=== PATIENT | female | born 1935 | race Caucasian/White ===

== ENCOUNTER 2024-11-08 18:40 | Observation (INO) | payer OTHER, SELFPAY ==
[2024-11-08 18:48] VITALS: BP 190/100; PULSE 89; RESP 18; TEMP 36.7; O2SAT 99; BMI 23.0
--- NOTE | 2024-11-08 18:50 | ED_ITS ---
HPI - Extremity Injury (Lower) General Chief Complaint: Fall Stated Complaint: fell off a ladder injured R knee Time Seen by Provider: 11/08/24 18:46 History of Present Illness HPI Narrative: Patient is an 89-year-old female who takes no medication presents today with right knee pain after fall off ladder. She states that she was coming down off a ladder she was 3 rings up when she felt right side. She may have hit her head but did not lose consciousness no evidence of trauma no neck pain no shoulder pain. Unable to bear weight. She got 500 of naproxen prior to arrival. Related Data Allergies Allergy/AdvReac Type Severity Reaction Status Date / Time No Known Drug Allergies Allergy Verified 11/08/24 18:47 Patient History Social History Smoking Status: Never smoker Smoking Status: Never smoker Alcohol type: wine Exam Initial Vital Signs Initial Vital Signs: Vital Signs Temperature 98.1 F 11/08/24 18:48 Pulse Rate 89 11/08/24 18:48 Respiratory Rate 18 11/08/24 18:48 Blood Pressure 190/100 H 11/08/24 18:48 Pulse Oximetry 99 11/08/24 18:48 Oxygen Delivery Method Room Air 11/08/24 18:48 GENERAL: Alert well-appearing 81-year-old female appears younger than stated age and in [no acute] distress. HEENT: Head atraumatic,EOMI, pupils reactive, face symmetric, [moist] mucous membranes CARDIOVASCULAR: Regular rate and rhythm without murmurs, rubs or gallops. RESPIRATORY: Breath sounds equal bilaterally, no wheezes rales or rhonchi. No rib pain ABDOMEN: Soft, nontender. Normoactive bowel sounds all 4 quadrants. No guarding or rebound. EXTREMITIES: Normal range of motion, no clubbing or edema. Neurovascularly intact pelvis stable Right lower extremity knee swollen and tender ankle is stable distal pedal pulse intact NEUROLOGICAL: Alert and oriented x4. Cranial nerves intact SKIN: Warm, dry, no laceration, no petechiae, no rashes or lesions. Course Orders Ordered: ED Orders 11/08/24 18:50 XR knee RT 3V Stat 11/08/24 19:47 CT LE RT wo con Stat 11/08/24 22:12 Consult to Orthopedic Surgery Stat 11/08/24 22:23 BMP [Basic Metabolic Panel] Stat CBC Auto Diff [Complete Blood Count AUTO DIFF] Stat Acetaminophen (Acetaminophen 325 Mg Tablet) 650 mg PO Q6H PRN PRN Reason: Fever/Mild Pain (1-3) Hydrocodone Bitart/Acetaminophen (Hydrocodone/Acet 5/325 Tablet) 1 tab PO Q4H PRN PRN Reason: Pain, Moderate (4-6) Heparin Sodium (Porcine) (Heparin 5,000 Unit/Ml Vial) 5,000 unit SUBCUT BID CAM Hydromorphone HCl (Hydromorphone 0.5 Mg Inj) 0.5 mg IV Q2H PRN PRN Reason: Pain, Severe (7-10) Naloxone HCl (Naloxone 0.4 Mg/Ml Vial) 0.2 mg IV Q2MIN PRN PRN Reason: Opiate Reversal Ondansetron HCl (Ondansetron 4 Mg/2 Ml Inj) 4 mg IV Q8HR PRN PRN Reason: Nausea And Vomiting Discontinued Medications Oxycodone/Acetaminophen (Oxycodone/Acetaminophen 5/325 Tablet) 0.5 tab PO NOW ONE Stop: 11/08/24 21:56 Last Admin: 11/08/24 22:07 Dose: 0.5 tab Documented By: DAVID Vital Signs Vital signs: Vital Signs - 8 hr 11/08/24 18:48 11/08/24 19:40 11/08/24 19:40 Temperature 98.1 F Pulse Rate 89 75 Respiratory Rate 18 Blood Pressure 190/100 H 186/93 H Pulse Oximetry 99 91 Oxygen Delivery Method Room Air 11/08/24 20:05 11/08/24 22:04 11/08/24 22:04 Temperature Pulse Rate 80 89 Respiratory Rate 18 16 Blood Pressure 174/101 H Pulse Oximetry 97 97 Oxygen Delivery Method Room Air MDM - Extremity Injury (Lower) Lab Data 11/08/24 22:23 11/08/24 22:23 Imaging Data Extremity x-ray #1: Radiologist's Impression: PROCEDURE: XR KNEE RT 3V INDICATIONS: fall TECHNIQUE: 3 views of the knee were acquired. COMPARISON: None. FINDINGS: Bones: Mildly impacted fracture of the proximal tibia diaphysis. There is some irregularity at the proximal lateral tibial plateau which may reflect intra-articular extension. Comminuted fracture of the fibula head with suspected intra-articular extension. Soft tissues: Large joint effusion. No suspicious soft tissue calcifications. Vascular calcifications are present. IMPRESSION: Proximal tibia diaphyseal fracture with suspected intra-articular extension. Comminuted fibular head fracture with suspected intra-articular extension. Large suprapatellar joint effusion. Approved by: Judith Malone M.D.,Ph.D. on 11/08/2024 at 19:43 CT LE: Radiologist's Impression: PROCEDURE: CT LE RT WO CON INDICATIONS: tibia fracture TECHNIQUE: Noncontrast 1-1.5 mm axial sections acquired from the mid-patella to the proximal tibia, with coronal and sagittal reformats. For radiation dose reduction, the following was used: automated exposure control, adjustment of mA and/or kV according to patient size. COMPARISON: [facility], CR, XR KNEE RT 3V, 11/08/2024, 18:58. FINDINGS: Image quality: Excellent. Bones: Comminuted mildly displaced fracture of the tibial plateau is again seen. Components are seen extending into the medial and lateral tibial plateau as well as the central eminence, with a transverse component seen at the tibial metaphysis (Schatzker type 6). There is approximately 2 mm gap along the fracture line at the medial tibial plateau without significant step-off. Up to 4 mm articular surface depression is seen at the posterior weight-bearing portion of the lateral tibial plateau. Displaced intra-articular fracture is seen involving the fibular head extending into the proximal tibiofibular articulation with up to 4 mm step-off at the articular surface. The posterior fracture fragment displaced posteriorly by approximately 12 mm. No femoral or patellar fracture is seen. Background osteoarthrosis. Soft tissues: Large lipohemarthrosis. Probable intramuscular hematoma within the soleus muscle, not well evaluated due attenuation similar to muscle. IMPRESSION: 1. Comminuted mildly depressed fracture of the tibial plateau with transverse component at the tibial metaphysis as described in the body report. 2. Comminuted displaced intra-articular fracture of the fibular head. 3. Large lipohemarthrosis. 4. Suspected intramuscular hematoma in the soleus muscle. Approved by: Saman Garcia M.D. on 11/08/2024 at 20:54 MDM Narrative Medical decision making narrative: Patient is a healthy 81-year-old female presenting today with right knee pain after fall off ladder from 3 race. She is not in actually severe pain. X-ray showed tibial fracture with intra articular extension. CT confirms tibial plateau fracture with a 4 mm depression along with comminuted displaced fracture of fibular head. 2100 Dr. Mckenna, updated on patient's symptoms test results has reviewed CT. Decision of nonoperative versus transfer. At this time recommends nonoperative treatment. Also recommends admission we will need help with mobility issues. Request admit to hospitalist service Dr. Zhang accepts patient Blood work reviewedmal limits no significant abnormality Patient did receive have a Percocet to apply a knee immobilizer. Discharge Plan Departure Patient Disposition: Admitted as Observation Clinical Impression: Fracture of right tibial plateau, Osteopenia Admit Date/Time: 11/08/24 22:14 Admit Provider: Adiel Crenshaw
[2024-11-08 19:40] VITALS: BP 186/93; PULSE 75; O2SAT 91
--- NOTE | 2024-11-08 19:47 | DI.CT.S_ITS ---
PROCEDURE: CT LE RT WO CON INDICATIONS: tibia fracture TECHNIQUE: Noncontrast 1-1.5 mm axial sections acquired from the mid-patella to the proximal tibia, with coronal and sagittal reformats. For radiation dose reduction, the following was used: automated exposure control, adjustment of mA and/or kV according to patient size. COMPARISON: [facility], CR, XR KNEE RT 3V, 11/08/2024, 18:58. FINDINGS: Image quality: Excellent. Bones: Comminuted mildly displaced fracture of the tibial plateau is again seen. Components are seen extending into the medial and lateral tibial plateau as well as the central eminence, with a transverse component seen at the tibial metaphysis (Schatzker type 6). There is approximately 2 mm gap along the fracture line at the medial tibial plateau without significant step-off. Up to 4 mm articular surface depression is seen at the posterior weight-bearing portion of the lateral tibial plateau. Displaced intra-articular fracture is seen involving the fibular head extending into the proximal tibiofibular articulation with up to 4 mm step-off at the articular surface. The posterior fracture fragment displaced posteriorly by approximately 12 mm. No femoral or patellar fracture is seen. Background osteoarthrosis. Soft tissues: Large lipohemarthrosis. Probable intramuscular hematoma within the soleus muscle, not well evaluated due attenuation similar to muscle. IMPRESSION: 1. Comminuted mildly depressed fracture of the tibial plateau with transverse component at the tibial metaphysis as described in the body report. 2. Comminuted displaced intra-articular fracture of the fibular head. 3. Large lipohemarthrosis. 4. Suspected intramuscular hematoma in the soleus muscle. Approved by: Saman Garcia M.D. on 11/08/2024 at 20:54
[2024-11-08 20:05] VITALS: PULSE 80; RESP 18; O2SAT 97
[2024-11-08 22:04] VITALS: BP 174/101; PULSE 89; RESP 16; O2SAT 97
[2024-11-08] MEDS: OXYCODONE/ACETAMINOPHEN 5/325 TABLET 0.5 TAB PO (22:07)
[2024-11-08 22:33] LABS: Add Manual Diff / Slide Review NO; Basophils Absolute Auto 0 /uL (0-100); Basophils Percent Auto 0.4 % (0-2); Eosinophils Absolute Auto 0 /uL (0-450); Eosinophils Percent Auto 0.4 % (2-4); Hematocrit 40.2 % (36-46); Hemoglobin 13.7 g/dL (12.0-16.0); Lymphocytes Absolute Auto 1200 /uL (1100-4500); Mean Corpuscular HGB Conc 34.1 % (30-36); Mean Corpuscular Hemoglobin 32.8 PG (26-34); Mean Corpuscular Volume 96.3 fL (80-100); Monocytes Absolute Auto 500 /uL (0-900); Monocytes Percent Auto 5.2 % (3-14); Neutrophils Absolute Auto 7700 /uL (1500-7000); Platelet Count 218 X10^3/uL (150-400); Red Blood Cell Count 4.17 X10^6/uL (4.0-5.2); White Blood Cell Count 9.5 X10^3/uL (4.5-11.0)
[2024-11-08 22:48] LABS: BUN Creatinine Ratio 37.1 (6-22); Blood Urea Nitrogen 26 mg/dL (7-17); Calcium 9.1 mg/dL (8.4-10.2); Carbon Dioxide 28 mmol/L (22-32); Chloride 102 mmol/L (98-107); Estimated Glomerular Filt Rate > 60 mL/min (>60); Glucose 118 mg/dL (80-110); HEMOLYSIS 20 (0-50); Sodium 136 mmol/L (137-145)
[2024-11-08 23:20] VITALS: BMI 23.0
[2024-11-08 23:36] VITALS: BP 186/112; PULSE 82; RESP 18; TEMP 36.4; O2SAT 96
[2024-11-09] MEDS: HYDROCODONE/ACET 5/325 TABLET 1 TAB PO ×4 (01:16→14:51)
[2024-11-09 05:38] LABS: Add Manual Diff / Slide Review NO; Basophils Absolute Auto 0 /uL (0-100); Basophils Percent Auto 0.3 % (0-2); Eosinophils Absolute Auto 0 /uL (0-450); Eosinophils Percent Auto 0.4 % (2-4); Hematocrit 35.5 % (36-46); Hemoglobin 12.1 g/dL (12.0-16.0); Lymphocytes Absolute Auto 900 /uL (1100-4500); Lymphocytes Percent Auto 14.5 % (25-40); Mean Corpuscular HGB Conc 34.2 % (30-36); Mean Corpuscular Hemoglobin 32.8 PG (26-34); Monocytes Absolute Auto 400 /uL (0-900); Monocytes Percent Auto 6.5 % (3-14); Neutrophils Absolute Auto 5000 /uL (1500-7000); Neutrophils Percent Auto 78.3 % (50-75); Platelet Count 193 X10^3/uL (150-400); Red Cell Distribution Width 13.2 % (11.6-14.8); White Blood Cell Count 6.4 X10^3/uL (4.5-11.0)
[2024-11-09 06:03] LABS: BUN Creatinine Ratio 36.6 (6-22); Blood Urea Nitrogen 26 mg/dL (7-17); Carbon Dioxide 27 mmol/L (22-32); Chloride 101 mmol/L (98-107); Estimated Glomerular Filt Rate > 60 mL/min (>60); Glucose 127 mg/dL (80-110); HEMOLYSIS < 15 (0-50); Sodium 134 mmol/L (137-145)
--- NOTE | 2024-11-09 06:03 | PM.HP.1 ---
History of Present Illness History of Present Illness Chief complaint: fell off a ladder injured R knee Narrative: 89-year-old female with no reported past medical history and does not take any medication presents with a fall and right knee pain. Per the patient's report the patient was walking down off a. Labs were relatively benign. X-ray and CT of the right lower extremity shows comminuted mildly depressed fracture of the tibial plateau with transverse component at the tibial meta phthisis ladder when she was only 3 rings and fell onto her right side. The patient might have hit her head slightly but did not lose consciousness and has no other pain other than her right knee. Due to significant pain on the right knee the patient was unable to bear any weight. Otherwise the patient denies any recent fever, chills, nausea, vomiting, diarrhea, chest pain or shortness of breath. In our emergency room, the patient was hemodynamically stable. Labs were relatively benign. CT and x-ray of the right knee shows a depressed fracture of the tibial plateau. Mildly fracture of the tibial plateau. Our ER physician did speak to orthopedic doctor surgeon Jeff on-call who recommended that we admit the patient here as the patient is nonoperative. Recommended for pain control PT OT and orthopedic to see the patient in the morning. [facility] Social History household members: family Smoking Status: Never smoker Meds Home Medications and Allergies Allergies Allergy/AdvReac Type Severity Reaction Status Date / Time No Known Drug Allergies Allergy Verified 11/08/24 18:47 Review of Systems Review of Systems ROS: Yes All systems reviewed with the patient and are negative except as otherwise documented Exam Vital Signs (past 8 hours): - 11/08/24 22:04 11/08/24 22:04 11/08/24 23:36 Temperature 97.5 F L Pulse Rate 89 82 Respiratory Rate 16 18 Blood Pressure 174/101 H 186/112 H Pulse Oximetry 97 96 Oxygen Delivery Method Room Air Oxygen Flow Rate 0 Oxygen Delivery Method Room Air Oxygen Flow Rate 0 Narrative Exam Narrative: Physical Exam: GENERAL: The patient is not in any acute distressed. Awake and alert. HEENT: Nonicteric sclerae, PERRLA, EOMI. Oropharynx clear. Moist mucous membranes. Conjunctivae appear well perfused. HEART: Regular rate and rhythm without murmurs. No lower extremities edema. LUNGS: Clear to auscultation bilaterally. No wheezing, crackles or rhonchi ABDOMEN: Soft, positive bowel sounds, nontender. SKIN: No rash, no excessive bruising, petechiae, or purpura. NEUROLOGIC: AxO x 3. Limimted movement in RLE due to pain otherwise Cranial nerves II-XII intact without motor/sensory deficit. Objective Labs 11/09/24 04:50 11/08/24 22:23 Labs: Laboratory Results - last 24 hr 11/08/24 11/09/24 22:23 04:50 WBC 9.5 6.4 RBC 4.17 3.70 L Hgb 13.7 12.1 Hct 40.2 35.5 L MCV 96.3 96.0 MCH 32.8 32.8 MCHC 34.1 34.2 RDW 13.0 13.2 Plt Count 218 193 Neut % (Auto) 81.0 H 78.3 H Lymph % (Auto) 13.0 L 14.5 L [place] % (Auto) 5.2 6.5 Eos % (Auto) 0.4 L 0.4 L Baso % (Auto) 0.4 0.3 Neut # (Auto) 7700 H 5000 Lymph # (Auto) 1200 900 L [place] # (Auto) 500 400 Eos # (Auto) 0 0 Baso # (Auto) 0 0 Sodium 136 L Potassium 4.0 Chloride 102 Carbon Dioxide 28 BUN 26 H Creatinine 0.70 Estimated GFR > 60 BUN/Creatinine Ratio 37.1 H Glucose 118 H Calcium 9.1 Assessment & Plan Assessment & Plan narrative: Mechanical fall with right tibial plateau fracture. Admit the patient to medical observation. PT OT. Pain control. Per orthopedic surgeon nonoperative. Orthopedic surgery will see tomorrow patient tomorrow and likely will follow-up as outpatient. DVT prophylaxis SCDs and heparin subcu. CODE STATUS full code. Disposition likely home with home health versus rehab in 1 to 2 days. - As the provider of this telehealth evaluation, requested by the patient's evaluating physician, I attest that I introduced myself to the patient, provided my credentials and determined that telemedicine via a real-time, 2 way interactive audio and video platform is an appropriate and effective means of providing this service. - I reviewed the patient's chart and had a discussion with the member of the patient's treatment team. - The patient and I mutually agreed with continuation of this evaluation via telemedicine. The patient consented for the telemedicine evaluation. - This virtual encounter was taken place from [place]. The encounter was approximately 35 minutes. The nurse was present during the entire time of the encounter and was able to move the stethoscope in appropriate directions. The patient was evaluated at [facility]. Time-Based Coding :: [TOTAL MINUTES] spent with patient and on the chart (including review of chart, obtaining history, exam, reviewing outside data, placing orders, documenting exam and treatment plan, and counseling patient) on [DATE]. Quality VTE Deep Vein Thrombosis/Pulmonary Embolism Present on Admission: No
--- NOTE | 2024-11-09 07:21 | P.PN_ITS ---
Subjective Subjective Interval history: Summary: 89-year-old male with ground level fall and tibial plateau fracture. S: Good pain control, the patient only has pain if she was moving the knee or trying to weight bear. She was otherwise healthy and has no medical problems. Exam Vital Signs (past 8 hours): - 11/08/24 23:36 Temperature 97.5 F L Pulse Rate 82 Respiratory Rate 18 Blood Pressure 186/112 H Pulse Oximetry 96 Oxygen Flow Rate 0 Oxygen Delivery Method Room Air Oxygen Flow Rate 0 Narrative Exam Narrative: NAD, alert and oriented. Fluent speech. Lungs are clear, normal rate and effort. Heart is regular, no murmur gallop or rub. Abdomen is soft, non distended. Extremities are free of edema. A right knee immobilizer is in place. Objective Imaging Multiple studies:: My impression: My read of the x-ray does reveal a proximal fibular fracture which is intra- articular as well as a depressed lateral plateau fracture of the tibia. Radiologist's impression: Leg CT: 1. Comminuted mildly depressed fracture of the tibial plateau with transverse component at the tibial metaphysis as described in the body report. 2. Comminuted displaced intra-articular fracture of the fibular head. 3. Large lipohemarthrosis. 4. Suspected intramuscular hematoma in the soleus muscle. Knee x-ray: Proximal tibia diaphyseal fracture with suspected intra-articular extension. Comminuted fibular head fracture with suspected intra-articular extension. Large suprapatellar joint effusion. Labs 11/09/24 04:50 11/09/24 04:50 Labs: Laboratory Results - last 24 hr 11/08/24 11/09/24 22:23 04:50 WBC 9.5 6.4 RBC 4.17 3.70 L Hgb 13.7 12.1 Hct 40.2 35.5 L MCV 96.3 96.0 MCH 32.8 32.8 MCHC 34.1 34.2 RDW 13.0 13.2 Plt Count 218 193 Neut % (Auto) 81.0 H 78.3 H Lymph % (Auto) 13.0 L 14.5 L [place] % (Auto) 5.2 6.5 Eos % (Auto) 0.4 L 0.4 L Baso % (Auto) 0.4 0.3 Neut # (Auto) 7700 H 5000 Lymph # (Auto) 1200 900 L [place] # (Auto) 500 400 Eos # (Auto) 0 0 Baso # (Auto) 0 0 Sodium 136 L 134 L Potassium 4.0 4.0 Chloride 102 101 Carbon Dioxide 28 27 BUN 26 H 26 H Creatinine 0.70 0.71 Estimated GFR > 60 > 60 BUN/Creatinine Ratio 37.1 H 36.6 H Glucose 118 H 127 H Calcium 9.1 9.0 PFSH Social History household members: family Smoking Status: Never smoker Assessment & Plan Assessment & Plan narrative: 1. Tibial plateau fracture and proximal fibula fracture, present on admission and active. Plan: -knee immobilizer. -analgesia. -orthopedics consult pending, still debating operative versus nonoperative management. -nonweightbearing right lower extremity at this time. Time-Based Coding :: [TOTAL MINUTES] spent with patient and on the chart (including review of chart, obtaining history, exam, reviewing outside data, placing orders, documenting exam and treatment plan, and counseling patient) on [DATE]. Quality VTE Deep Vein Thrombosis/Pulmonary Embolism Present on Admission: No
[2024-11-09] MEDS: HEPARIN 5,000 UNIT/ML VIAL 5000 UNIT SUBCUT (09:19)
--- NOTE | 2024-11-09 11:20 | PT.IIE ---
Physical Therapy Inpatient Evaluation/Re-Eval M1 PT/OT-IP Prior Functional Status Start: 11/09/24 11:09 Freq: NEEDED Status: Active Protocol: Document 11/09/24 11:10 KJ (Rec: 11/09/24 11:20 KJ [id number]) Medical Review Prior Functional Status Medical History Reviewed Yes Mobility and Gait Indep ambulation without AD Activities of Daily Living and IADL's Indep ADLs Social History Household Members family Living Arrangements House Number of Stairs To Enter/Railing? 2 without railing Home Environment Standard Height Toilet Additional Social History Comment Pt lives with her daughter and son in law. They are housesitting locally for another week, then patient will fly home to [place]. M2 PT-IP Current Condition Start: 11/09/24 11:09 Freq: NEEDED Status: Active Protocol: Document 11/09/24 11:10 KJ (Rec: 11/09/24 11:20 KJ [id number]) Physical Therapy Current Condition Current Condition Evaluation Date 11/09/24 Treatment Diagnosis Impaired mobility s/p tibial plateau fx Onset Date 11/08/24 M3 PT-IP Subjective Start: 11/09/24 11:09 Freq: NEEDED Status: Active Protocol: Document 11/09/24 11:10 KJ (Rec: 11/09/24 11:20 KJ [id number]) Subjective Physical Therapy Visit Type Type Initial Evaluation Visit Start Time 10:12 Visit Stop Time 11:06 Physical Therapy Visit Comments Patient Comments Daughter states pt is very active and might try to do more than is safe. Patient Goals To make it home to [place] safely. Therapy Pain Assessment Pain When Pain Assessed At Rest Pain Present Pain Present Denied Pain M4 PT-IP Mobility and Gait Start: 11/09/24 11:09 Freq: NEEDED Status: Active Protocol: Document 11/09/24 11:10 KJ (Rec: 11/09/24 11:20 KJ [id number]) PT-Bed Mobility Assessment Rolling Type of Rolling Roll to Left Level of Assist Contact Guard Assistance Supine to Sit Supine to Sit Minimal Assistance Scooting Scooting to Edge of Bed Contact Guard Assistance Scooting Up and Down in Bed Contact Guard Assistance PT-Transfer Assessment Sit to and From Stand Sit to and from Stand Minimal Assistance Equipment Transfer Assistive Device Gait Belt,Front Wheeled Walker Orthotic/Prosthetic Devices or Brace: Yes Transfers Transfer Destination Chair Transfer Technique Stand Step Pivot Transfer Ability Level of Assist Minimal Assistance Comments Mobility Comments Some loss of balance when patient is distracted Gait Assessment Gait Gait Assistance Required: Minimum Assistance Distance (Feet) 10 Able to Maintain Weight Bearing Status Yes During Gait Assistive Devices Assistive Device Gait Belt,Front Wheeled Walker Orthotic/Prosthetic Devices or Brace: Yes Stair Climbing Assessment Comments Stair Climbing Comments Verbally discussed stairs. At present time, son in law will be able to lift pt up the 2 steps needed to get into the house they are house sitting in. PT-Balance Assessment Sitting Balance and Reactions Static Sitting Balance Ability Normal Dynamic Sitting Balance Ability Normal Standing Balance and Reactions Static Standing Balance Ability Good Dynamic Standing Balance Ability Fair M5 PT-IP Objective Assessments Start: 11/09/24 11:09 Freq: NEEDED Status: Active Protocol: Document 11/09/24 11:10 KJ (Rec: 11/09/24 11:20 KJ [id number]) Gross Range of Motion Upper Extremity ROM Assessment Within Functional Limits Lower Extremity ROM Assessment Right Impaired Impairments knee immobilized Strength Upper Extremity Strength Assessment Within Functional Limits Comments Strength Comments bilat ankles WNL. R knee WNL. M6 PT-IP Treatment Start: 11/09/24 11:09 Freq: NEEDED Status: Active Protocol: Document 11/09/24 11:10 KJ (Rec: 11/09/24 11:20 KJ [id number]) Physical Therapy Treatment Exercises Exercises Ankle Pumps,Gluteal Sets,Quad Sets Education Education Provided Weight Bearing Status,Safety M7 PT-IP Assessment and Plan Start: 11/09/24 11:09 Freq: NEEDED Status: Active Protocol: Document 11/09/24 11:10 KJ (Rec: 11/09/24 11:20 KJ [id number]) PT Summary Assessment and Plan Potential Rehabilitation Potential Excellent Status of Condition at Evaluation Evolving Summary Impairments Transfers,Gait Assessment Summary Pt typically tries to do too much (according to daughter) and therefore presents a safety risk during mobility due to the non-weightbearing status already impairing her balance. At this time, pt should have assistance with all mobility. Goals Bed Mobility Goal Standby Assistance Transfer Goal Standby Assistance Gait Goal Standby Assistance Gait Distance 50 Days to Meet Goals 3 Frequency of Treatment Frequency Of Treatment Once a Day Treatment Plan Physical Therapy Treatment Plan Transfer Training,Gait Training,Therapeutic Exercise Other Recommendations and Next Treatment stairs/step Focus Weight Bearing Status Weight Bearing Status Non-Weight Bearing Recommendations To Nursing Amount of Assist Needed 1 Person Assist Discharge Recommendations PT Discharge Recommendations Home with 15/02 Assist Available Transportation Needs at Discharge Private Vehicle
--- NOTE | 2024-11-09 12:15 | OT.IP.EVAL ---
Occupational Therapy Inpatient Evaluation/Re-Eval M1 PT/OT-IP Prior Functional Status Start: 11/09/24 11:09 Freq: NEEDED Status: Active Protocol: Document 11/09/24 12:30 [facility] (Rec: 11/09/24 12:45 [facility] Desktop) Medical Review Prior Functional Status Medical History Reviewed Yes Mobility and Gait Indep ambulation without AD Activities of Daily Living and IADL's Indep ADLs Social History Household Members family Living Arrangements House Number of Stairs To Enter/Railing? 2 without railing Home Environment Standard Height Toilet,Walk in Shower,Built-In Shower Seat Home Equipment Hand Held Shower,Grab Bars In Shower Additional Social History Comment Pt lives with her daughter and son in law. They are housesitting locally for another week, then patient will fly home to [place]. Pt's family looking to picker feeder BSC, WC, and LB dressing equipment. M2 OT-IP Current Condition Start: 11/09/24 12:30 Freq: Status: Active Protocol: Document 11/09/24 12:30 [facility] (Rec: 11/09/24 12:45 [facility] Desktop) Occupational Therapy Current Condition Current Condition Evaluation Date 11/09/24 Treatment Diagnosis Tibia fx Diagnosis Onset Date 11/08/24 Weight Bearing Status Weight Bearing Status Non-Weight Bearing Allowed Weight Bearing Amount (enter % Per surgeon NWB for 8-12 weeks or #) (%) . Per Dr. Flores to have immobilizer on when up. Okay to take off when resting and for hygiene needs. M3 OT- IP Subjective and Pain Start: 11/09/24 12:30 Freq: Status: Active Protocol: Document 11/09/24 12:30 [facility] (Rec: 11/09/24 12:45 [facility] Desktop) OT- Subjective Occupational Therapy Visit Type Type Initial Evaluation Visit Start Time 11:34 Visit Stop Time 12:20 Occupational Therapy Visit Comments Patient Comments Pt agreed to get up to try the FWW. Patient/Caregiver Goals To get better. OT Pain Assessment Pain When Pain Assessed During Mobility Pain Present Pain Present Pain Reported Location Right knee Pain Behaviors Facial Grimacing,Holding Area, Wincing M4 OT- IP ADL's Start: 11/09/24 12:30 Freq: Status: Active Protocol: Document 11/09/24 12:30 [facility] (Rec: 11/09/24 12:45 [facility] Desktop) OT [id number]-[id number] General Evaluation Self-Feeding Ability Standby Assistance Comments OT Self-Feeding Comments Assist with set-up. OT ADL-Grooming General Evaluation Grooming Ability Standby Assistance Comments OT Grooming Comments While seated. OT ADL-Oral Care General Eval Oral Care Ability Independent OT ADL-Dressing General Eval Lower Body Dressing Ability Maximum Assistance Comments OT Dressing Comments Educated best to dress the RLE first and take out last. TO show pt use of LB dressing equipment. OT ADL-Toileting Comments OT Toileting Comments Suggested to get a BSC, use of pads and wipe will be helpful . At this time, pt will need assist. OT ADL-Bathing Comments OT Bathing Comments Pt will benefit from a shower chair and assist. Educated to cover the immobilizer on in the shower as will have to stand to do pericare needs. M6 OT- IP Functional Cognition Start: 11/09/24 12:30 Freq: Status: Active Protocol: Document 11/09/24 12:30 [facility] (Rec: 11/09/24 12:45 [facility] Desktop) Cognitive Factors Limiting Selfcare Function Cognitive Ability Level of Alertness Alert Cognitive Comments Cognitive Assessment Comments Pt is very [place] , but able to follow commands. OT- Vision and Hearing OT- Hearing Assessment OT- Hearing Assessment Hearing Impaired OT- Vision Assessment Visual Acuity WFL Occular Pursuits WFL M7 OT- IP Mobility and Balance Start: 11/09/24 12:30 Freq: Status: Active Protocol: Document 11/09/24 12:30 [facility] (Rec: 11/09/24 12:45 [facility] Desktop) OT- Bed Mobility Assessment Supine to Sit Supine to Sit Assist Minimal Assistance Sit to Supine Sit to Supine Assist Minimal Assistance OT-Transfer Assessment Sit to and From Stand Sit to and from Stand Minimal Assistance,Moderate Assistance Transfers Transfer Ability Minimal Assistance,Moderate Assistance Technique Transfer Destination Bed Devices Transfer Assistive Devices Gait Belt,Front Wheeled Walker Comments Mobility Comments Educated pt's daughter to use the gait belt to assist pt to stand. DEBBIE to MODA to stand to the FWW and vc to push up from the bench seating. Once on her feet able to hope some and maintain the RLE NWB. Suggested best to have a wc and use of shoe for the left side. OT- Balance Assessment Sitting Balance and Reactions Static Sitting Balance Ability Normal Dynamic Sitting Balance Ability Good Standing Balance and Reactions Static Standing Balance Ability Fair Dynamic Standing Balance Ability Poor M8 OT- IP Objective Assessments Start: 11/09/24 12:30 Freq: Status: Active Protocol: Document 11/09/24 12:30 [facility] (Rec: 11/09/24 12:45 [facility] Desktop) OT Gross Range of Motion Upper Extremity Range of Motion Assessment Within Functional Limits OT Strength Comments Strength Comments WFL for needs. M9 OT- IP Assessment and Plan Start: 11/09/24 12:30 Freq: Status: Active Protocol: Document 11/09/24 12:30 [facility] (Rec: 11/09/24 12:45 [facility] Desktop) OT Summary Assessment and Plan Potential Rehabilitation Potential Good Analytic Complexity at Evaluation Moderate Summary OT Impairments Pain,Strength,Balance, Functional Mobility,Dressing, Toileting,Bathing,Toilet Transfers,Shower Transfers, Activity Tolerance Progress Towards Goals Progressing Toward Goals Assessment Summary Pt MOD complexity and main barriers are pain, unsteady on her LLE as trying to maintain RLE NWB with use of FWW. Pt has supportive family to assist and planning on getting equipment from [employer] and FWW to be issued to pt. Pt will benefit from / assist . Per sx, pt will be NWB for her RLE for 8-12 weeks. Goals Self-Feeding Goal Independent Grooming Goal Independent Dressing Goal Minimal Assistance Toileting Goal Standby Assistance Bathing Goal Moderate Assistance Toilet Transfer Goal Standby Assistance Shower Transfer Goal Minimal Assistance Days to Meet Goals 10 Frequency of Treatment Other frequency 5x/week Treatment Plan OT Treatment Plan ADL Training,Functional Mobility,Patient/Family Education,Discharge Planning Discharge Recommendations OT Discharge Recommendations Home with 24/7 Assist Available Home Equipment Needs BSC, WC, FWW, LB dressing equipment Transportation Needs at Discharge Private Vehicle
--- NOTE | 2024-11-09 13:15 | CM.DANOTE ---
Initial DCP Assessment Visit Note Reviewed EMR and team rounds for pt's medical status and updates. Went in to meet with pt/family, however only met briefly due to them also meeting with Ortho. Pt lives independently at baseline with her dtr and son-in-law in [place]. They are currently house sitting in the area for another week before they will all return to [place]. Pt is independent and very active at baseline, she is expressing wanting to d/c home today w/her family, and has a wheelchair in order to safely get into the home with assistance. Her family will transport her home later this afternoon. Payor: Braden Sousa Attending: Dr. Mckenna, Hospitalist Pt is a 89 year-old F who presented to the ED yesterday evening after she fell off of a ladder at the home she is staying at with her dtr and son-in-law while they house sit. ED imaging showed a mild R-knee fracture, Ortho was consulted, and they determined that the fracture was non-operable. PT/OT saw pt and evaluated her to be safe for home d/c, with OP f/u. They decline any CM d/c assistance needs at this time. DCP will monitor for any further evolving needs prior to her departure home. She does not require an AD at baseline, and family will provide for her OP care needs. Discharge Planning/Care Management CM Discharge Assessment Start: 11/09/24 13:12 Freq: Status: Active Protocol: Document 11/09/24 13:13 [facility] (Rec: 11/09/24 13:14 [facility] [id number]) Discharge Planning Assessment Assigned Logging Equipment Operator SRINI Coreas Advance Directives? No History Provided By Patient,Family Member,Medical Record Has Patient been admitted in last 30 No days? Prior Living Arrangements House Household Members family Type of transporation used prior to Drives own vehicle admit Independent with ADL's Yes Is patient alert and oriented? Yes Comment N/A Caregiver for Another No Comment No AD at baseline. Comment No identified CM d/c needs identified at this time. Barriers to Discharge No Discharge Plan Home Transportation Arrangement Family Referrals Initiated None needed Whiteboard Updated in Patient Room with Yes name and ext. # of Logging Equipment Operator Review Status In Process Please Provide Date Initial DC 11/09/24 Assessment Was Performed
--- NOTE | 2024-11-09 13:34 | PM.HP.1 ---
History of Present Illness History of Present Illness Chief complaint: fell off a ladder injured R knee Narrative: Chief complaint: Right tibia pain HPI: This 89-year-old female patient is visiting from out of town with her family. They have been house sitting for a local resident. She was on a ladder when she had a fall. She sustained an acute fracture. This was minimally displaced. I was on-call and received a call from the emergency department last night. Reviewed her imaging and discussed the imaging with several outside surgeons given the difficulties associated with determining operative versus nonoperative treatment in her case. She has been admitted to the medical service here. She has pain in the right leg which is worsened by movement and partially alleviated by rest. It has been present since the time of injury. She denies any pain elsewhere. PMH: No pertinent medical conditions that would affect our treatment plan for her Social history: Lives out of town with family in [facility] Physical exam: Right knee examination demonstrates swelling present in the proximal tibia. Range of motion examination deferred given known injury. Compartments are soft and compressible. She has intact sensory motor function in the sciatic nerve distribution distally in her foot. She has a well-perfused foot. She has no pain elsewhere that she reports at this time Imaging: Radiographs of the right knee as well as CT scan of the right knee demonstrate a bicondylar tibial plateau fracture with no significant step-offs, no large intra-articular displacement, and no depression of the medial compartment relative to the lateral compartment. Both the medial and lateral compartments are compressed in the metaphyseal area. The joint surface remains congruent and there is no significant coronal or sagittal plane deformity Assessment: 89-year-old female with a high energy mechanism resulting in a bicondylar tibial plateau fracture with acceptable alignment Plan: I had an extensive conversation with the family today as well as with the patient regarding operative versus nonoperative treatment. This is a very borderline call and I solicited they are input on ensuring that I was making the right decision for them. The fracture is well aligned and if it heals in its current position this would be acceptable and appropriate. She will need to be nonweightbearing for 8-12 weeks in order to allow this to heal which presents some very challenging logistical considerations, particularly since she lives out of town. I did discuss the possibility of fixation either with a plate or with the nail. I would not perform a very significant reduction were I to proceed with surgery and would not allow her to bear weight on the injury postoperatively. I am also worried that at her age of 89 years and based on the appearance of the bone quality on her CT scan that she could have significant osteoporosis at the fracture site which could lead to difficulty obtaining adequate purchase should I move forward with fixation. We therefore decided that the benefits of surgery would not justify moving forward with it. I did explain that there is a real risk of the fracture further displacing over time and that were this to happen I would recommend moving forward with surgery. I also discussed with them that she does have some arthritis in this could cause some injury to her articular surface which could worsen that arthritis and cause long-term pain even after she resumed ambulating after it has healed. If that were to happen a total knee arthroplasty could be a consideration. I explained that I would be able to do this for her down the road however this is complicated by her long-term residence in [place] which would mean that I would not be able to provide that long-term possibility for her. After a prolonged discussion of the risks and benefits of operative versus nonoperative treatment they ultimately elected to proceed with nonoperative treatment. I would like to see them in my clinic next week which will be on Wednesday. I will repeat x-rays, plan to get her a hinged knee brace which would allow her to have some knee range of motion although I would need to keep her nonweightbearing. I would also try to get her set up with an ice machine and potentially some supports for her to elevate her leg when she is supine. She should take aspirin 81 mg twice per day for DVT prophylaxis for the duration of her treatment. She should use a multimodal pain regimen incorporating non opioid medications particularly Tylenol and anti-inflammatories but I would prescribe her opioids at my visit with her next Wednesday so that she has a rescue medication should she have severe pain. They are going to make plans for a returned to [place] and establish orthopedic care when they arrive there. [facility] Social History household members: family Smoking Status: Never smoker Meds Home Medications and Allergies Allergies Allergy/AdvReac Type Severity Reaction Status Date / Time No Known Drug Allergies Allergy Verified 11/08/24 18:47 Exam Vital Signs (past 8 hours): - 11/09/24 07:00 Oxygen Delivery Method Room Air Oxygen Delivery Method Room Air Oxygen Flow Rate 0 Objective Labs 11/09/24 04:50 11/09/24 04:50 Labs: Laboratory Results - last 24 hr 11/08/24 11/09/24 22:23 04:50 WBC 9.5 6.4 RBC 4.17 3.70 L Hgb 13.7 12.1 Hct 40.2 35.5 L MCV 96.3 96.0 MCH 32.8 32.8 MCHC 34.1 34.2 RDW 13.0 13.2 Plt Count 218 193 Neut % (Auto) 81.0 H 78.3 H Lymph % (Auto) 13.0 L 14.5 L [place] % (Auto) 5.2 6.5 Eos % (Auto) 0.4 L 0.4 L Baso % (Auto) 0.4 0.3 Neut # (Auto) 7700 H 5000 Lymph # (Auto) 1200 900 L [place] # (Auto) 500 400 Eos # (Auto) 0 0 Baso # (Auto) 0 0 Sodium 136 L 134 L Potassium 4.0 4.0 Chloride 102 101 Carbon Dioxide 28 27 BUN 26 H 26 H Creatinine 0.70 0.71 Estimated GFR > 60 > 60 BUN/Creatinine Ratio 37.1 H 36.6 H Glucose 118 H 127 H Calcium 9.1 9.0 Assessment & Plan Time-Based Coding :: [TOTAL MINUTES] spent with patient and on the chart (including review of chart, obtaining history, exam, reviewing outside data, placing orders, documenting exam and treatment plan, and counseling patient) on [DATE]. Quality VTE Deep Vein Thrombosis/Pulmonary Embolism Present on Admission: No
--- NOTE | 2024-11-09 14:13 | PM.DS.1 ---
History of Present Illness History of Present Illness Chief complaint: fell off a ladder injured R knee Narrative: From H&P: This 89-year-old female patient is visiting from out of town with her family. They have been house sitting for a local resident. She was on a ladder when she had a fall. She sustained an acute fracture. This was minimally displaced. I was on-call and received a call from the emergency department last night. Reviewed her imaging and discussed the imaging with several outside surgeons given the difficulties associated with determining operative versus nonoperative treatment in her case. She has been admitted to the medical service here. She has pain in the right leg which is worsened by movement and partially alleviated by rest. It has been present since the time of injury. She denies any pain elsewhere. PMH: No pertinent medical conditions that would affect our treatment plan for her Discharge Providers Provider Date of admission: 11/08/24 22:14 Discharge Date: 11/09/24 Consults: 11/08/24 22:12 Consult to Orthopedic Surgery Stat Comment: Consulting Provider: Jn Mckenna Reason for consultation: Tibial plateau fracture Has provider been notified: Yes 11/08/24 22:37 Consult to Occupational Therapy Evaluate & Treat Comment: Physician Instructions: Evaluate and treat Consult to Physical Therapy Evaluate & Treat Comment: Physician Instructions: Evaluate and Treat 11/09/24 11:52 Consult to Occupational Therapy Evaluate & Treat Comment: Safe Home Mobility Physician Instructions: Front Wheeled Walker Discharge provider: Thony Mcfadden MD Summary Hospital Course Discharge Diagnosis: 1. Tibial plateau fracture and proximal fibula fracture, present on admission and active. Hospital Course: She was admitted for fractures as noted above. She was treated with pain control on a knee immobilizer. She was seen by Orthopedics and we will return to her vacation rental with pain medications and immobilization. She will follow up with Orthopedics within the next 5 days for repeat x-ray. Ongoing decision making regarding nonoperative versus operative management will depend on imaging and her clinical progress. She will be given pain medications. Status at Discharge Cognitive/behavioral status at discharge: oriented Functional status at discharge: wheelchair bound Overall status at discharge: patient is progressing back to baseline Time Spent with Patient Time spent: Greater than 30 minutes Exam Vital Signs (past 8 hours): - 11/09/24 07:00 Oxygen Delivery Method Room Air Oxygen Delivery Method Room Air Oxygen Flow Rate 0 Narrative Exam Narrative: NAD, alert and oriented. Fluent speech. Lungs are clear, normal rate and effort. Heart is regular, no murmur gallop or rub. Abdomen is soft, non distended. Extremities are free of edema. Right leg is in knee immobilizer. Objective Imaging Multiple studies: : Radiologist's impression: Multiple studies:: My impression: My read of the x-ray does reveal a proximal fibular fracture which is intra-articular as well as a depressed lateral plateau fracture of the tibia. Radiologist's impression: Leg CT: 1. Comminuted mildly depressed fracture of the tibial plateau with transverse component at the tibial metaphysis as described in the body report. 2. Comminuted displaced intra-articular fracture of the fibular head. 3. Large lipohemarthrosis. 4. Suspected intramuscular hematoma in the soleus muscle. Knee x-ray: Proximal tibia diaphyseal fracture with suspected intra-articular extension. Comminuted fibular head fracture with suspected intra-articular extension. Large suprapatellar joint effusion. Labs 11/09/24 04:50 11/09/24 04:50 Labs: Laboratory Results - last 24 hr 11/08/24 11/09/24 22:23 04:50 WBC 9.5 6.4 RBC 4.17 3.70 L Hgb 13.7 12.1 Hct 40.2 35.5 L MCV 96.3 96.0 MCH 32.8 32.8 MCHC 34.1 34.2 RDW 13.0 13.2 Plt Count 218 193 Neut % (Auto) 81.0 H 78.3 H Lymph % (Auto) 13.0 L 14.5 L [place] % (Auto) 5.2 6.5 Eos % (Auto) 0.4 L 0.4 L Baso % (Auto) 0.4 0.3 Neut # (Auto) 7700 H 5000 Lymph # (Auto) 1200 900 L [place] # (Auto) 500 400 Eos # (Auto) 0 0 Baso # (Auto) 0 0 Sodium 136 L 134 L Potassium 4.0 4.0 Chloride 102 101 Carbon Dioxide 28 27 BUN 26 H 26 H Creatinine 0.70 0.71 Estimated GFR > 60 > 60 BUN/Creatinine Ratio 37.1 H 36.6 H Glucose 118 H 127 H Calcium 9.1 9.0 PFSH Social History household members: family Smoking Status: Never smoker Discharge Assessment & Plan Assessment and Plan Assessment: 1. Tibial plateau fracture and proximal fibula fracture, present on admission and active. Plan of Treatment: Discharge home, wheelchair, nonweightbearing. Follow up with Orthopedics within the next 5-7 days for repeat imaging. Pain medications. Discharge Plan Discharge Plan Patient Disposition: Home Provider Discharge Comment: Stable for discharge with knee immobilizer and close follow up with Orthopedics. Discharge orders & Medications Prescriptions: New hydrocodone-acetaminophen 5-325 mg Tablet 1 tab PO Q4H PRN (Reason: Pain, Moderate (4-6)) Qty: 20 0RF aspirin 81 mg capsule 81 mg PO DAILY Qty: 60 0RF Follow up/Referrals: Jn Mckenna MD [Physician] - Diet/Activity/Treatments Diet: Regular Activity: Nonweightbearing on right leg. Visit Report/Discharge Packet Instructions: Fibula Shaft Fracture Stand Alone Forms: Patient Portal/API, Stroke Signs & Symptoms Discharge Data Attending Provider: Adiel Crenshaw Admit Date/Time: 11/08/24 22:14 Quality VTE Deep Vein Thrombosis/Pulmonary Embolism Present on Admission: No
== END 2024-11-09 14:45 | disposition home or self-care (01) ==
LOC: ED 22:02 → AC 22:14
PROVIDERS: Admitting Provider Internal Medicine; Emergency Provider Emergency Medicine; Referring Provider Emergency Medicine; Visit Provider Internal Medicine
DX: M25.561 Pain in right knee (principal); W11.XXXA Fall on and from ladder, initial encounter; S82.451A Displaced comminuted fracture of shaft of right fibula, initial encounter for closed fracture
CPT/HCPCS: 36415; 73562; 73700; 80048; 85025; 96372; 97116; 97166; 97530; 97535; 99284; G0378; J1644